=== PATIENT | female | born 1965 | race Caucasian/White ===

== ENCOUNTER → 2017-12-17 | Outpatient (CLI) | payer OTHER | LOC: RAD 07:23 | DX: K21.9 Gastro-esophageal reflux disease without esophagitis (principal); K44.9 Diaphragmatic hernia without obstruction or gangrene ==

== ENCOUNTER → 2018-02-17 | Outpatient (CLI) | payer OTHER ==
[~2018-02-17] VITALS: Ht 167.6 cm; Wt 90.7 kg
[~2018-02-17] MED LIST: DIFLUCAN150 MG PO; GLIPIZIDE XL5 MG PO; GLUCOPHAGE XR500 MG PO; JARDIANCE25 MG PO; KOMBIGLYZE XR1 EAC1 PO; LISINOPRIL-HCT1 EAC1 PO; MULTIVITAMINS1 EAC7 PO; OMEPRAZOLE40 MG PO; VITAMIN B COMP1 EACH PO
--- NOTE | ~2018-02-17 | O ---
[facility] [place] [address] OPERATIVE REPORT Name: JANES KNIGHT Room #: REG [facility]#: [id number] Admission: 02/17/18 Attend Phys: Reece Evans MD, Discharge: Date of : 67 Report #: [id number] THIS REPORT FOR: //name// CC: MELODIE Evans Physician staff DATE OF SERVICE: 02/17/2018 PREOPERATIVE DIAGNOSIS: Gastroesophageal reflux disease. POSTOPERATIVE DIAGNOSES: 1. Gastroesophageal reflux disease. 2. Hiatal hernia. PROCEDURE PERFORMED: Thorough esophagogastroduodenoscopy (EGD). SURGEON: Reece Evans M.D. DEVELOPMENT REP: None. ANESTHESIA: Monitored anesthesia care. ESTIMATED BLOOD LOSS: None. COMPLICATIONS: None appreciated. SPECIMENS: None. INDICATIONS: The patient is a 52-year-old female with intermittent dysphagia and severe reflux disease who presents for upper endoscopy. DESCRIPTION OF PROCEDURE: After explaining the risks, benefits and alternatives of the procedure with the patient in detail and obtaining consent, the patient was brought to the endoscopy suite supine on her hospital bed. After conducting a thorough timeout procedure verifying correct patient and procedure, the patient was given monitored anesthesia care. Once adequate anesthesia was obtained, her SCDs were hooked up to pneumatic compression device and the [employer] upper endoscope was used to intubate the oropharynx. This was traversed down to the stomach with ease where the pylorus was identified and intubated. Scope was advanced to the second portion of the duodenum where slow careful withdrawal of the EGD scope showed no evidence of duodenitis, gastritis, esophagitis, mass lesions or ulcerations. There was a significant amount of retained bile within the entire gastric lumen. A retroflexion view of the scope showed a small hiatal hernia. Photodocumentation of the above was taken and provided to the patient's permanent medical record. The scope was straightened [facility] [address] [place] [address] OPERATIVE REPORT Name: JANES KNIGHT Room #: REG [facility].#: [id number] Admission: 02/17/18 Attend Phys: Reece Evans MD, Discharge: Date of : 67 Report #: [id number] out in the gastric lumen where it was withdrawn in the distal esophagus and we saw evidence of a patulous lower esophageal sphincter complex. No evidence of Wetzel's changes or abnormalities were seen, however. The stomach was fully desufflated. The scope was removed and passed off the field completing the procedure. At the end of the procedure, all instrument, needle and sponge counts were correct. The patient tolerated the procedure without incident, was awakened in the endoscopy suite and transitioned to the recovery room in stable condition with no apparent complications. <ELECTRONICALLY SIGNED> By: Reece Evans MD, FACS 02/18/18 [id number] [facility] Reece Evans MD, FACS /nt
== END | disposition home or self-care (01) ==
LOC: GI 07:00
DX: K21.9 Gastro-esophageal reflux disease without esophagitis (principal); K44.9 Diaphragmatic hernia without obstruction or gangrene; I10 Essential (primary) hypertension; E11.9 Type 2 diabetes mellitus without complications; Z79.899 Other long term (current) drug therapy; Z79.84 Long term (current) use of oral hypoglycemic drugs; Z98.890 Other specified postprocedural states; Z90.49 Acquired absence of other specified parts of digestive tract
CPT/HCPCS: 62110; 62900